=== PATIENT | male | born 1985 | race Caucasian/White ===

== ENCOUNTER 2019-08-31 11:18 | Emergency (ER) | payer MEDICAID ==
[~2019-08-31] VITALS: Ht 172.7 cm; Wt 77.3 kg
[~2019-08-31 11:18] MED LIST: NO HOME MEDS; ONDA4TAB59 PO; VAL5T PO
[2019-08-31 11:23] VITALS: BP 122/68
[2019-08-31 12:08] LABS: BASOPHILS % (AUTO) 0.7 % (0-1); EOSINOPHILS # (AUTO) 0.2 X10'3 (0-0.9); EOSINOPHILS % (AUTO) 3.6 % (0-6); HEMATOCRIT 45.8 % (42.0-52.0); HEMOGLOBIN 15.5 g/dl (14.0-17.9); LYMPHOCYTES # (AUTO) 1.6 X10'3 (1.1-4.8); LYMPHOCYTES % (AUTO) 27.4 % (21-51); MEAN CORPUSCULAR HEMOGLOBIN 31.8 PG (27.0-31.0); MEAN CORPUSCULAR HGB CONC 33.9 g/dL (33.0-36.5); MEAN CORPUSCULAR VOLUME 93.8 FL (78-98); MEAN PLATELET VOLUME 7.5 FL (7.4-10.4); MONOCYTES # (AUTO) 0.7 X10'3 (0-0.9); MONOCYTES % (AUTO) 11.3 % (2-12); NEUTROPHILS # (AUTO) 3.3 X10'3 (1.8-7.7); PLATELET COUNT 316 X10'3 (140-440); RED BLOOD COUNT 4.88 X10'6 (4.70-6.10); RED CELL DISTRIBUTION WIDTH 13.1 % (11.5-14.5); WHITE BLOOD COUNT 5.8 X10'3 (4.5-11.0)
[2019-08-31 12:26] LABS: ALANINE AMINOTRANSFERASE 23 U/L (12-78); ALBUMIN 3.7 G/DL (3.4-5.0); ALBUMIN/GLOBULIN RATIO 1.1 (1.1-1.5); ALKALINE PHOSPHATASE 58 IU/L (46-116); ANION GAP 10 (8-16); ASPARTATE AMINO TRANSFERASE 16 U/L (10-37); BILIRUBIN,TOTAL 0.3 MG/DL (0.1-1.0); BLOOD UREA NITROGEN 11 MG/DL (7-18); BUN/CREATININE RATIO 10.7 (5.4-32.0); CALCIUM 9.4 MG/DL (8.5-10.1); CHLORIDE 107 MMOL/L (99-107); CREATININE 1.03 MG/DL (0.60-1.10); GLUCOSE 104 MG/DL (70-104); POTASSIUM 3.8 MMOL/L (3.5-5.1); SODIUM 143 MMOL/L (135-145); TOTAL CARBON DIOXIDE 26.3 MMOL/L (24-32); eGFR 82 ML/MIN
[2019-08-31 12:55] LABS: CLARITY,URINE CLEAR (Clear); COLOR,URINE YELLOW (Yellow); GLUCOSE, URINE NEGATIVE (Neg); KETONES,URINE NEGATIVE (Neg); LEUKOCYTE ESTERASE ,URINE NEGATIVE (Neg); NITRITES, URINE NEGATIVE (Neg); OCCULT BLOOD,URINE NEGATIVE (Neg); PROTEIN,URINE NEGATIVE (Neg); UROBILINOGEN,URINE 0.2 E.U/dL (0.2-1.0)
[2019-08-31 12:56] LABS: UA COLLECTION TYPE CLN CATCH MIDSTREAM
[2019-08-31] MEDS ORDERED: CefTRIAXone 250MG IM Kit w/LIDOcaine IM ONE (13:25)
[2019-08-31] MEDS ORDERED: azithromycin 250mg tablet PO ONE (13:25)
== END 2019-08-31 13:52 | disposition home or self-care (01) ==
LOC: ER 11:19
DX: R59.0 Localized enlarged lymph nodes (principal); R39.11 Hesitancy of micturition; G89.29 Other chronic pain; F17.200 Nicotine dependence, unspecified, uncomplicated; F12.90 Cannabis use, unspecified, uncomplicated; F15.90 Other stimulant use, unspecified, uncomplicated; Z20.2 Contact with and (suspected) exposure to infections with a predominantly sexual mode of transmission; Z79.899 Other long term (current) drug therapy
CPT/HCPCS: 36415; 80053; 81003; 85025; 87491; 87591; 96372; 99283; J0696

== ENCOUNTER 2019-11-12 07:04 | Day surgery (SDC) | payer MEDICAID ==
[2019-11-05 15:53] LABS: BASOPHILS % (AUTO) 0.8 % (0-1); EOSINOPHILS # (AUTO) 0.2 X10'3 (0-0.9); EOSINOPHILS % (AUTO) 3.8 % (0-6); LYMPHOCYTES # (AUTO) 1.7 X10'3 (1.1-4.8); LYMPHOCYTES % (AUTO) 30.3 % (21-51); MEAN CORPUSCULAR HEMOGLOBIN 31.7 PG (27.0-31.0); MEAN CORPUSCULAR HGB CONC 33.2 g/dL (33.0-36.5); MEAN CORPUSCULAR VOLUME 95.7 FL (78-98); MEAN PLATELET VOLUME 7.3 FL (7.4-10.4); MONOCYTES # (AUTO) 0.6 X10'3 (0-0.9); MONOCYTES % (AUTO) 10.7 % (2-12); NEUTROPHILS % (AUTO) 54.4 % (42-75); PRE OP HEMATOCRIT 43.6 % (42.0-52.0); PRE OP HEMOGLOBIN 14.4 g/dL (14.0-17.9); PRE OP PLATELET COUNT 288 X10'3 (140-440); RED BLOOD COUNT 4.56 X10'6 (4.70-6.10); RED CELL DISTRIBUTION WIDTH 13.3 % (11.5-14.5)
[2019-11-05 15:58] LABS: ALBUMIN 3.6 G/DL (3.4-5.0); ALBUMIN/GLOBULIN RATIO 1.2 (1.1-1.5); ALKALINE PHOSPHATASE 58 IU/L (46-116); BLOOD UREA NITROGEN 13 MG/DL (7-18); BUN/CREATININE RATIO 14.4 (5.4-32.0); CALCIUM 8.8 MG/DL (8.5-10.1); CHLORIDE 109 MMOL/L (99-107); PRE OP ALT 20 U/L (30-65); PRE OP ANION GAP 9 (8-16); PRE OP AST 12 U/L (10-37); PRE OP BILIRUB, TOTAL 0.3 MG/DL (0.0-1.0); PRE OP GLUCOSE 135 MG/DL (70-104); PRE OP POTASSIUM 3.7 MMOL/L (3.4-5.1); PRE OP SODIUM 144 MMOL/L (135-145); TOTAL CARBON DIOXIDE 26.1 MMOL/L (24-32); TOTAL PROTEIN 6.7 G/DL (6.4-8.2); eGFR > 90 ML/MIN
[2019-11-12] VITALS (12 sets, daily range): BP systolic 105–137; BP diastolic 58–78
[~2019-11-12] VITALS: Ht 172.7 cm; Wt 83.4 kg
[~2019-11-12 07:04] MED LIST changes: +IBUP-1986 PO; +MARIJAUNA INH; -NO HOME MEDS; -ONDA4TAB59 PO; -VAL5T PO; +cefazolin/dext.iso 2gm/50ml 50 ML IV ONE; +famotidine 20mg tablet PO ONE; +ringers solution, lacted 1,000 ML IV SCH
[2019-11-12] MEDS ORDERED: LIDOcaine 1% w/epiNEPHrine 1:200,000 30ml vial ONE (09:09)
[2019-11-12] MEDS ORDERED: BUPIVAcaine/PF 2.5 mg/ml (0.25%) 30ml vial ONE (09:09)
[2019-11-12] MEDS ORDERED: ketorolac trometh. 30mg/ml inj. ONE (09:15)
[2019-11-12] MEDS ORDERED: ondansetron/PF 4mg/2ml inj ONE (09:15)
[2019-11-12] MEDS ORDERED: sevoflurane 250ml liquid IH ONE (09:15)
[2019-11-12] MEDS ORDERED: fentaNYL/PF 50MCG/1 ML 2ML syringe ONE ×2 (09:16→09:26)
[2019-11-12] MEDS ORDERED: midazolam 2 mg/2 ml injection ONE (09:17)
[2019-11-12] MEDS ORDERED: ringers solution, lacted 1,000 ML IV SCH (10:24)
[2019-11-12] MEDS ORDERED: proCHLORperazine 10 MG/2 ml inj IV PRN (10:25)
[2019-11-12] MEDS ORDERED: meperidine/PF 25mg/ml syringe IV PRN ×3 (10:25)
[2019-11-12] MEDS ORDERED: morphine 2 MG/ML inj. syringe IV PRN (10:25)
[2019-11-12] MEDS ORDERED: ondansetron/PF 4mg/2ml inj IV PRN (10:25)
[2019-11-12] MEDS ORDERED: morphine 4 MG/ML inj SYRINge IV PRN (10:25)
[2019-11-12] MEDS ORDERED: LIDOcaine 2% (20mg/ml) 5ml vial ONE (10:30)
[2019-11-12] MEDS ORDERED: neostigmine methylsulfate 1 MG/ML 10ml vial ONE (10:30)
[2019-11-12] MEDS ORDERED: glycopyrrolate 0.2mg/ml inj ONE (10:30)
[2019-11-12] MEDS ORDERED: dexamethasone sod phosphate 4mg/ml inj. ONE (10:30)
[2019-11-12] MEDS ORDERED: propofol inj 20 ML IV ONE (10:30)
[2019-11-12] MEDS ORDERED: rocuronium 10mg/ml inj IV ONE (10:30)
[2019-11-12] MEDS ORDERED: HYDROcodone/acetaminophen 5mg/325mg tablet PO PRN (10:50)
--- NOTE | 2019-11-12 10:50 | NUR ---
Received from OR via BED , accompanied by Anesthesiologist DR MENDOZA and report given by Anesthesiolgist. PATIENT WAKING UP, DENIES PAIN, V/S WNL, NEUROVASCULAR CHECKS INTACT, 20G PIV LUE, SCD ON, BANDAIDS TO LAP SIGHTS OF ABDOMEN CDI.
--- NOTE | 2019-11-12 13:00 | NUR ---
. PATIENT A&OX4, DENIES PAIN, V/S WNL, NEUROVASCULAR CHECKS INTACT, 20G PIV LUE D/C, SCD OFF, BANDAIDS TO LAP SIGHTS OF ABDOMEN CDI.. I HAVE REVIEWED D/C INSTRUCTIONS WITH PATIENT AND FAMILY HAVE VERBALIZED UNDERSTANDING. PATIENT HAS VOIDED AND POST VOID BLADDER SCANN UNDER 50CC. PATIENT GIVEN SCRIPT FOR PAIN. PATIENT WAS D/C HOME WITH ALL BELONGINGS AND FAMILY GAVE TRANSPORT HOME
== END 2019-11-12 13:00 | disposition home or self-care (01) ==
LOC: PAS 07:04
PROVIDERS: ATTEND Surgery
DX: K42.9 Umbilical hernia without obstruction or gangrene (principal); K40.90 Unilateral inguinal hernia, without obstruction or gangrene, not specified as recurrent; F12.90 Cannabis use, unspecified, uncomplicated; Z72.89 Other problems related to lifestyle; F31.9 Bipolar disorder, unspecified; G89.29 Other chronic pain; K21.9 Gastro-esophageal reflux disease without esophagitis; Z11.59 Encounter for screening for other viral diseases; Z79.899 Other long term (current) drug therapy
CPT/HCPCS: 36415; 49585; 49650; 80053; 82948; 85025; 93005; C1781; J1100; J1885; J2001; J2175; J2250; J2405; J2704; J2710; J3010; J3490; J7120; S2900; U0003; A4215; A4618; A7000

== ENCOUNTER 2020-02-27 11:18 | Emergency (ER) | payer MEDICAID ==
[~2020-02-27] VITALS: Ht 172.7 cm; Wt 90.9 kg
[~2020-02-27 11:18] MED LIST changes: -cefazolin/dext.iso 2gm/50ml 50 ML IV ONE; -famotidine 20mg tablet PO ONE; -ringers solution, lacted 1,000 ML IV SCH
[2020-02-27 11:28] VITALS: BP_DIAS 72
[2020-02-27] MEDS ORDERED: cyclobenzaprine 10mg tablet PO ONE (12:00)
[2020-02-27] MEDS ORDERED: CYCL-1 PO (12:47)
[2020-02-27 13:11] VITALS: BP_SYST 162
== END 2020-02-27 13:12 | disposition home or self-care (01) ==
LOC: ER 11:18
DX: S16.1XXA Strain of muscle, fascia and tendon at neck level, initial encounter (principal); M54.2 Cervicalgia; R53.1 Weakness; G89.29 Other chronic pain; F12.90 Cannabis use, unspecified, uncomplicated; F15.90 Other stimulant use, unspecified, uncomplicated; Z79.899 Other long term (current) drug therapy; X58.XXXA Exposure to other specified factors, initial encounter; Y93.89 Activity, other specified; Y92.89 Other specified places as the place of occurrence of the external cause; Y99.8 Other external cause status
CPT/HCPCS: 72040; 99283

== ENCOUNTER 2022-04-11 04:50 | Emergency (ER) | payer MEDICAID ==
[~2022-04-11] VITALS: Ht 172.7 cm; Wt 90.9 kg
[~2022-04-11 04:50] MED LIST changes: +CYCL-1 PO
[2022-04-11 05:29] LABS: BASOPHILS # (AUTO) 0.1 X10'3 (0-0.2); BASOPHILS % (AUTO) 0.6 % (0-1); EOSINOPHILS # (AUTO) 0.3 X10'3 (0-0.9); EOSINOPHILS % (AUTO) 2.9 % (0-6); HEMATOCRIT 41.4 % (42.0-52.0); HEMOGLOBIN 13.7 g/dl (14.0-17.9); LYMPHOCYTES # (AUTO) 2.3 X10'3 (1.1-4.8); LYMPHOCYTES % (AUTO) 23.7 % (21-51); MEAN CORPUSCULAR HEMOGLOBIN 30.4 PG (27.0-31.0); MEAN PLATELET VOLUME 7.1 FL (7.4-10.4); MONOCYTES # (AUTO) 1.1 X10'3 (0-0.9); MONOCYTES % (AUTO) 11.5 % (2-12); NEUTROPHILS # (AUTO) 5.9 X10'3 (1.8-7.7); NEUTROPHILS % (AUTO) 61.3 % (42-75); PLATELET COUNT 365 X10'3 (140-440); RED CELL DISTRIBUTION WIDTH 12.9 % (11.5-14.5); WHITE BLOOD COUNT 9.7 X10'3 (4.5-11.0)
[2022-04-11 05:44] LABS: ALANINE AMINOTRANSFERASE 67 U/L (12-78); ALBUMIN 3.8 G/DL (3.4-5.0); ALBUMIN/GLOBULIN RATIO 1.1 (1.1-1.5); ALKALINE PHOSPHATASE 59 IU/L (46-116); ANION GAP 10 (8-16); ASPARTATE AMINO TRANSFERASE 38 U/L (10-37); BILIRUBIN,TOTAL 0.4 MG/DL (0.1-1.0); BLOOD UREA NITROGEN 15 MG/DL (7-18); BUN/CREATININE RATIO 14.2 (5.4-32.0); CALCIUM 10.3 MG/DL (8.5-10.1); CHLORIDE 105 MMOL/L (99-107); CREATININE 1.06 MG/DL (0.60-1.10); GLUCOSE 105 MG/DL (70-104); POTASSIUM 3.5 MMOL/L (3.5-5.1); SODIUM 141 MMOL/L (135-145); TOTAL CARBON DIOXIDE 26.5 MMOL/L (24-32); TOTAL PROTEIN 7.3 G/DL (6.4-8.2); eGFR 78 ML/MIN
[2022-04-11] MEDS: famotidine 20mg tablet PO ONE (09:18)
[2022-04-11] MEDS: acetaminophen 325mg tablet PO ONE (09:19)
[2022-04-11] MEDS: mag hydrox/Alum hydrox/simeth 30ml oral suspension PO ONE (09:20)
[2022-04-11] MEDS ORDERED: PANT-47 PO (11:16)
[2022-04-11 11:20] VITALS: BP 127/80
--- NOTE | 2022-04-11 11:22 | NUR ---
Received order for consult. Met with patient in regards to substance use and to see if patient was interested in treatment options. Patient would like to go to an inpatient rehab. I gave patient [facility] number to get process started and my card to call me with any questions.
== END 2022-04-11 11:35 | disposition home or self-care (01) ==
LOC: ER 04:51
DX: R07.89 Other chest pain (principal); R05.9 Cough, unspecified; R11.10 Vomiting, unspecified; G89.29 Other chronic pain; F12.90 Cannabis use, unspecified, uncomplicated; F15.90 Other stimulant use, unspecified, uncomplicated; Z79.899 Other long term (current) drug therapy
CPT/HCPCS: 36415; 71045; 80053; 83880; 84484; 85025; 93005; 99285

== ENCOUNTER 2024-05-30 05:55 | Emergency (ER) | payer MEDICAID ==
[~2024-05-30] VITALS: Ht 172.7 cm; Wt 123.0 kg
[~2024-05-30 05:55] MED LIST changes: +PANT-47 PO
[2024-05-30 07:25] LABS: ALANINE AMINOTRANSFERASE 87 U/L (12-78); ALBUMIN 3.9 G/DL (3.4-5.0); ALKALINE PHOSPHATASE 78 IU/L (46-116); ANION GAP 9 (8-16); ASPARTATE AMINO TRANSFERASE 33 U/L (10-37); BILIRUBIN,TOTAL 0.3 MG/DL (0.1-1.0); BLOOD UREA NITROGEN 14 MG/DL (7-18); BUN/CREATININE RATIO 15.7 (10.0-20.0); CHLORIDE 105 MMOL/L (99-107); CREATININE 0.89 MG/DL (0.60-1.10); GLUCOSE 145 MG/DL (70-104); LIPASE 41 U/L (16-77); POTASSIUM 3.5 MMOL/L (3.5-5.1); SODIUM 136 MMOL/L (135-145); TOTAL CARBON DIOXIDE 22.3 MMOL/L (24-32); TOTAL PROTEIN 7.8 G/DL (6.4-8.2); eCRCL 107 ML/MIN; eGFR > 90 ML/MIN
[2024-05-30 07:35] LABS: BASOPHILS # (AUTO) 0.1 X10'3 (0-0.2); BASOPHILS % (AUTO) 0.6 % (0-1); EOSINOPHILS # (AUTO) 0.3 X10'3 (0-0.9); EOSINOPHILS % (AUTO) 2.4 % (0-6); HEMATOCRIT 46.8 % (42.0-52.0); HEMOGLOBIN 15.6 g/dl (14.0-17.9); LYMPHOCYTES # (AUTO) 2.3 X10'3 (1.1-4.8); LYMPHOCYTES % (AUTO) 21.7 % (21-51); MEAN CORPUSCULAR HGB CONC 33.4 g/dL (33.0-36.5); MEAN CORPUSCULAR VOLUME 92.9 FL (78-98); MEAN PLATELET VOLUME 7.6 FL (7.4-10.4); MONOCYTES # (AUTO) 0.6 X10'3 (0-0.9); NEUTROPHILS # (AUTO) 7.5 X10'3 (1.8-7.7); NEUTROPHILS % (AUTO) 69.3 % (42-75); PLATELET COUNT 367 X10'3 (140-440); RED BLOOD COUNT 5.03 X10'6 (4.70-6.10); RED CELL DISTRIBUTION WIDTH 13.1 % (11.5-14.5); WHITE BLOOD COUNT 10.8 X10'3 (4.5-11.0)
[2024-05-30 09:45] LABS: BILIRUBIN,URINE NEGATIVE (Neg); CLARITY,URINE CLEAR (Clear); COLOR,URINE YELLOW (Yellow); GLUCOSE, URINE NEGATIVE (Neg); KETONES,URINE NEGATIVE (Neg); LEUKOCYTE ESTERASE ,URINE NEGATIVE (Neg); NITRITES, URINE NEGATIVE (Neg); OCCULT BLOOD,URINE NEGATIVE (Neg); PH,URINE 5.5 (4.8-8.0); PROTEIN,URINE NEGATIVE (Neg); UROBILINOGEN,URINE 0.2 E.U/dL (0.2-1.0)
[2024-05-30 09:58] LABS: UA COLLECTION TYPE CLN CATCH MIDSTREAM
[2024-05-30 10:36] VITALS: BP 134/92; PULSE 85; RESP 18; O2SAT 98
== END 2024-05-30 12:28 | disposition home or self-care (01) ==
LOC: ER 05:55
DX: I86.1 Scrotal varices (principal); R10.32 Left lower quadrant pain; F17.210 Nicotine dependence, cigarettes, uncomplicated; F12.90 Cannabis use, unspecified, uncomplicated; F15.90 Other stimulant use, unspecified, uncomplicated
CPT/HCPCS: 36415; 74176; 76870; 80053; 81003; 83690; 85025; 93976; 99284

== ENCOUNTER 2024-07-11 21:31 | Emergency (ER) | payer MEDICAID ==
[~2024-07-11] VITALS: Ht 172.7 cm; Wt 100.0 kg
[~2024-07-11 21:31] MED LIST changes: -CYCL-1 PO; -IBUP-1986 PO; -PANT-47 PO
[2024-07-11 22:22] LABS: ALANINE AMINOTRANSFERASE 55 U/L (12-78); ALBUMIN 3.7 G/DL (3.4-5.0); ALBUMIN/GLOBULIN RATIO 1.2 (1.1-1.5); ALKALINE PHOSPHATASE 88 IU/L (46-116); ANION GAP 7 (8-16); ASPARTATE AMINO TRANSFERASE 23 U/L (10-37); BILIRUBIN,TOTAL 0.3 MG/DL (0.1-1.0); BLOOD UREA NITROGEN 13 MG/DL (7-18); BUN/CREATININE RATIO 14.9 (10.0-20.0); CALCIUM 8.9 MG/DL (8.5-10.1); CHLORIDE 108 MMOL/L (99-107); CREATININE 0.87 MG/DL (0.60-1.10); GLUCOSE 137 MG/DL (70-104); POTASSIUM 3.9 MMOL/L (3.5-5.1); SODIUM 142 MMOL/L (135-145); TOTAL CARBON DIOXIDE 26.6 MMOL/L (24-32); TOTAL PROTEIN 6.8 G/DL (6.4-8.2); eCRCL 109 ML/MIN; eGFR > 90 ML/MIN
[2024-07-11] MEDS ORDERED: iohexol 300mg/ml 100ml inj. ONE (22:25)
[2024-07-11 22:30] LABS: BASOPHILS # (AUTO) 0.1 X10'3 (0-0.2); BASOPHILS % (AUTO) 0.9 % (0-1); EOSINOPHILS # (AUTO) 0.4 X10'3 (0-0.9); EOSINOPHILS % (AUTO) 4.9 % (0-6); ETHANOL < 10 MG/DL (<10); HEMATOCRIT 42.5 % (42.0-52.0); HEMOGLOBIN 14.5 g/dl (14.0-17.9); LIPASE 39 U/L (16-77); LYMPHOCYTES % (AUTO) 27.1 % (21-51); MEAN CORPUSCULAR VOLUME 91.3 FL (78-98); MEAN PLATELET VOLUME 7.1 FL (7.4-10.4); MONOCYTES # (AUTO) 0.5 X10'3 (0-0.9); MONOCYTES % (AUTO) 7.1 % (2-12); NEUTROPHILS # (AUTO) 4.3 X10'3 (1.8-7.7); PLATELET COUNT 341 X10'3 (140-440); RED BLOOD COUNT 4.66 X10'6 (4.70-6.10); WHITE BLOOD COUNT 7.2 X10'3 (4.5-11.0)
[2024-07-11 22:47] LABS: BILIRUBIN,URINE NEGATIVE (Neg); CLARITY,URINE CLEAR (Clear); COLOR,URINE YELLOW (Yellow); GLUCOSE, URINE NEGATIVE (Neg); KETONES,URINE NEGATIVE (Neg); LEUKOCYTE ESTERASE ,URINE NEGATIVE (Neg); NITRITES, URINE NEGATIVE (Neg); OCCULT BLOOD,URINE NEGATIVE (Neg); PROTEIN,URINE NEGATIVE (Neg); UROBILINOGEN,URINE 0.2 E.U/dL (0.2-1.0)
[2024-07-11 22:48] LABS: UA COLLECTION TYPE NON-SPECIFIED
[2024-07-11 23:04] LABS: URINE AMPHETAMINE SCREEN POSITIVE (Neg); URINE BARBITUATE SCREEN NEGATIVE (Neg); URINE BENZODIAZEPINES SCREEN NEGATIVE (Neg); URINE CANNABINOID SCREEN POSITIVE (Neg); URINE COCAINE SCREEN NEGATIVE (Neg); URINE METHADONE SCREEN NEGATIVE (Neg); URINE OPIATE SCREEN NEGATIVE (Neg); URINE PHENCYCLIDINE SCREEN NEGATIVE (Neg)
[2024-07-12 01:15] VITALS: BP 143/98; PULSE 92; RESP 16; TEMP 96.4; O2SAT 97
== END 2024-07-12 01:24 | disposition home or self-care (01) ==
LOC: ER 21:32
DX: R10.30 Lower abdominal pain, unspecified (principal); G89.29 Other chronic pain; M54.9 Dorsalgia, unspecified; F12.90 Cannabis use, unspecified, uncomplicated; F15.90 Other stimulant use, unspecified, uncomplicated
CPT/HCPCS: 36415; 74177; 80053; 80305; 80320; 81003; 83690; 83735; 84484; 85025; 99285; Q9967

== ENCOUNTER 2024-11-05 09:41 | Day surgery (SDC) | payer MEDICAID ==
[2024-10-30 10:45] LABS: MEAN PLATELET VOLUME 7.3 FL (7.4-10.4); PRE OP HEMATOCRIT 42.7 % (42.0-52.0); PRE OP HEMOGLOBIN 14.3 g/dL (14.0-17.9); PRE OP PLATELET COUNT 294 X10'3 (140-440); PRE OP WHITE BLOOD COUNT 5.8 10'3 (4.8-10.8); RED CELL DISTRIBUTION WIDTH 13.8 % (11.5-14.5)
--- NOTE | 2024-10-30 10:46 | ELECTROCARDIOGRAPH REPORT ---
[facility] Test Date: 2024-10-30 Test Time: 10:41:43 Pat Name: ANTONINO SOLORIO Department: [facility]-PRE-OP Patient ID: [facility]-[id number] Room: Gender: M Dance Artist: KVNG : 1985 Requested By: JERARDO LISA Order Number: [id number] Reading MD: Dr. CATE Garcia Measurements Intervals [place] Rate: 66 P: 9 MT: 145 QRS: 52 QRSD: 94 T: 41 QT: 366 QTc: 384 Interpretive Statements Sinus rhythm Electronically Signed On 10-30-2024 15:15:[address] CATE Garcia Please click the below link to view image of tracing.
[2024-10-30 10:56] LABS: CREATININE 0.80 MG/DL (0.60-1.10); PRE OP ALT 53 U/L (30-65); PRE OP ANION GAP 6 (8-16); PRE OP AST 22 U/L (10-37); PRE OP BILIRUB, TOTAL 0.2 MG/DL (0.0-1.0); PRE OP GLUCOSE 89 MG/DL (70-104); PRE OP POTASSIUM 3.9 MMOL/L (3.4-5.1); PRE OP SODIUM 138 MMOL/L (135-145); TOTAL CARBON DIOXIDE 26.0 MMOL/L (24-32); eGFR > 90 ML/MIN
--- NOTE | 2024-10-30 12:03 | RADIOLOGY REPORT ---
EXAM: DI CHEST,TWO VIEWS CLINICAL HISTORY: pain COMPARISON: None TECHNIQUE: Frontal and lateral view of the chest was obtained FINDINGS: Lines and Tubes: None Lungs: No focal consolidation. Pleura: No effusion. No pneumothorax. Cardiomediastinal contours: Unremarkable Bones: No acute osseous abnormality. IMPRESSION: No acute cardiopulmonary disease.
[~2024-11-05] VITALS: Ht 172.7 cm; Wt 84.6 kg
[2024-11-05] VITALS (20 sets, daily range): BP systolic 96–134; BP diastolic 51–86; PULSE 65–101; RESP 11–21; TEMP 98.4; O2SAT 94–98
[2024-11-05] MEDS: ceFAZolin 2gm/dext,iso 50mL 50 ML IV ONE (05:30)
[~2024-11-05 09:41] MED LIST changes: +BUPIVAcaine/PF 2.5 mg/ml (0.25%) 30ml vial ONE; +LIDOcaine 1% (10mg/ml)w/preservative inj. 20ml MDV ONE; -MARIJAUNA INH; +NO HOME MEDS
[2024-11-05] MEDS ORDERED: hydrALAZINE 20mg/ml inj. IV PRN ×2 (10:05→10:10)
[2024-11-05] MEDS ORDERED: fentaNYL/PF 50MCG/1 ML 2ML syringe IV PRN ×2 (10:05)
[2024-11-05] MEDS ORDERED: ondansetron/PF 4mg/2ml inj IV PRN ×2 (10:05→10:10)
[2024-11-05] MEDS ORDERED: labetalol 20mg/4ml (5mg/ml) syringe IV PRN ×2 (10:05→10:10)
[2024-11-05] MEDS ORDERED: morphine 4 MG/ML inj SYRINge IV PRN ×2 (10:05→10:10)
[2024-11-05] MEDS ORDERED: ringers solution, lacted 1,000 ML IV SCH (10:10)
[2024-11-05] MEDS ORDERED: HYDROmorphone/PF 0.2 MG/ML SYRINGE IV PRN ×2 (10:10)
[2024-11-05] MEDS: ringers solution, lacted 1,000 ML IV SCH (10:25)
[2024-11-05] MEDS ORDERED: dexmedetomidine 200mcg/2ml inj. IV ONE (11:03)
[2024-11-05] MEDS ORDERED: fentaNYL/PF 50MCG/1 ML 2ML syringe ONE (11:10)
[2024-11-05] MEDS ORDERED: midazolam 1 mg/ML 2ml injection ONE (11:11)
[2024-11-05] MEDS ORDERED: rocuronium 10mg/ml inj IV ONE (11:11)
[2024-11-05] MEDS ORDERED: dexamethasone sod phosphate 4mg/ml inj. ONE (11:11)
[2024-11-05] MEDS ORDERED: ondansetron/PF 4mg/2ml inj ONE (11:11)
[2024-11-05] MEDS ORDERED: acetaminophen 1,000mg/100ml IV 100 ML IV ONE (11:23)
[2024-11-05] MEDS: BUPIVAcaine/PF 2.5 mg/ml (0.25%) 30ml vial IJ ONE (11:54)
--- NOTE | 2024-11-05 12:48 | OPERATIVE REPORT ---
Operative Report Providers to CC: LÓPEZ LISA MD ~ Date of Procedure: Nov 05, 2024 Pre-Operative Diagnosis: Right inguinal hernia Post-Operative Diagnosis Large indirect right inguinal hernia Procedure Performed Robotic assisted, laparoscopic right inguinal hernia repair with mesh Surgeon: López Lisa MD FACS [employer] Super[employer] None Anesthesiologist: Kike Pearson Type of Anesthesia: General Findings: Very large indirect inguinal-scrotal hernia Wound class I Complications None Prosthetics\Implants used: Extra-large Dextile mesh Estimated Blood Loss: Minimal Specimen Removed: None Description of Procedure: Patient was brought to the operating room and identified by the nursing staff and the attending physician. Patient was placed supine and general anesthesia was induced. Patient's abdomen was prepped and draped in standard sterile fashion. Preoperative antibiotics were given. Supraumbilical incision was made to allow for standard Aburto entry technique. Laparoscope was inserted after insufflation. Bilateral, 8.5 mm robotic trochars were placed under laparoscopic guidance following administration of local anesthetic. The [place] robotic arm was docked to the patient and instruments placed intra-abdominally under laparoscopic visualization. The left hemipelvis was examined and showed no evidence of left inguinal hernia, however, there was scarring and evidence of previous preperitoneal repair. The view was somewhat obscured due to overlying sigmoid colon. An indirect hernia was identified on the right side. Hernia sac was moderate in size. A rent was created in the peritoneum from the median umbilical fold and carried out laterally towards the anterior superior iliac spine. Preperitoneal flap was created and carried down to the symphysis pubis. The retropubic space of [place] was developed and the bladder swept medially. Dissection was carried out laterally until an indirect hernia sac was identified. This was actually quite large in size extending into the right hemiscrotum. Hernia sac was completely dissected away from the cord structures and reduced. The critical view of the myopectineal orifice was achieved. Dissection was carried out laterally to allow space for mesh deployment. An extra- large, Dextile mesh and suture was passed intra-abdominally. Mesh was laid in the preperitoneal space covering both indirect, direct, and potential femoral and obturator hernias. Mesh laid without wrinkles or folds. 3 tacking sutures using 0 Ethibond were used to fix the mesh at the symphysis pubis, rectus abdominis, and just anterior to the anterior superior iliac spine. The peritoneal rent was then closed with running, 2/0, absorbable locking suture. [place] were retrieved. Abdomen was deflated and secondary trochars removed. Fascia at the umbilical port site was closed with 0 Vicryl sutures. Skin incisions were closed with 4-0 Monocryl sutures in a subcuticular fashion. Sterile dressings were applied. Patient was awakened and taken to the postanesthesia care unit in stable condition. Counts repoted as correct: Yes LÓPEZ LISA MD Nov 05, 2024 12:48
[2024-11-05] MEDS: HYDROcodone/acetaminophen 5mg/325mg tablet PO PRN (15:49)
[2024-11-05] MEDS: ketorolac trometh 15mg/ml vial 15 MG/ML ML IV ONE (15:55)
--- NOTE | 2024-11-19 12:57 | PROGRESS NOTE ---
Progress Note Dictate Providers to CC CC: JERARDO LISA MD ~ Progress Note: This is an interval history and physical exam being dictated in a delayed fashion for patient visit on November 05 of this year. Patient was actually seen and examined on that day and her history and physical exam (which was only dated eight days prior) was updated and signed For some reason it was lost and it is no longer in the chart Patient was seen on the day of November 05 Patient was re-examined and confirmed to have a right inguinal hernia Patient scheduled for robotic assisted, laparoscopic right inguinal hernia repair with mesh Antibiotic Ordered?: N/A Objective Objective 39-year-old male in no acute distress Right side confirmed as site of inguinal hernia and marked with ink Lungs are clear to auscultation bilaterally Heart is regular rate and rhythm without murmurs Abdomen is soft and nondistended Problem\Assessment\Plan Problems/Diagnosis: (1) Right inguinal hernia Assessment & Plan: The risks, benefits, and alternatives to a robotic assisted, laparoscopic right inguinal hernia repair with mesh were discussed with the patient. Risks include, but are not limited to, bleeding, infection, injury to intra-abdominal structures, hernia recurrence and chronic postoperative pain. Patient verbalized understanding and wishes to proceed with surgery. We will do so today as scheduled JERARDO LISA MD Nov 19, 2024 12:57
== END 2024-11-05 18:18 | disposition home or self-care (01) ==
LOC: PAS 09:41
PROVIDERS: ATTEND Surgery
DX: K40.90 Unilateral inguinal hernia, without obstruction or gangrene, not specified as recurrent (principal); F31.9 Bipolar disorder, unspecified; F12.90 Cannabis use, unspecified, uncomplicated; K21.9 Gastro-esophageal reflux disease without esophagitis; Z98.890 Other specified postprocedural states; Z79.899 Other long term (current) drug therapy; Z98.52 Vasectomy status; Z86.14 Personal history of Methicillin resistant Staphylococcus aureus infection
CPT/HCPCS: 36415; 49650; 71046; 80053; 82948; 85025; 93005; C1781; J0131; J1100; J1885; J2003; J2250; J2405; J2704; J3010; J3490; J7030; J7120; Z7506; Z7508; Z7512; A4215; A4618